=== PATIENT | male | born 1985 | race Caucasian/White ===

== ENCOUNTER 2021-09-08 13:36 | Emergency (ER) | payer MEDICAID ==
[~2021-09-08] VITALS: Ht 177.8 cm; Wt 82.0 kg
[2021-09-08] MEDS ORDERED: ONDANSETRON HCL 4MG/2ML INJ IV STA (17:08)
[2021-09-08] MEDS ORDERED: SODIUM CHLORIDE 0.9% 1,000 ML IV ONE (17:15)
[2021-09-08] MEDS ORDERED: MORPHINE SULFATE 4 MG/ML CPJ (NOT FOR IM USE) IV ONE (22:45)
[2021-09-08] MEDS ORDERED: FAMOTIDINE 20MG/2ML VIAL IV ONE (22:45)
[2021-09-08 22:46] LABS: BASOPHILS % 0.4 % (0.0-2.0); HEMATOCRIT. 52.3 % (42.0-52.0); LYMPHOCYTES % 14.7 % (20.0-50.0); MEAN CORPUSCULAR HEMOGLOBIN 28.5 pg (28.0-32.0); MEAN CORPUSCULAR VOLUME 82.6 fL (80.0-94.0); MEAN PLATELET VOLUME 8.2 fl (7.4-10.4); MONOCYTES % 8.4 % (2.0-8.0); NEUTROPHILS % 76.5 % (40.0-76.0); PLATELET 293 x1000/uL (130-400); RED BLOOD CELL COUNT 6.33 mill/uL (4.7-6.1); RED CELL DISTRIBUTION WIDTH 13.6 % (11.6-14.6)
[2021-09-08 22:48] LABS: CHLORIDE 101 mEq/L (98-107)
[2021-09-08 22:52] LABS: ETHANOL BLOOD < 10 mg/dL
[2021-09-08] MEDS ORDERED: ONDANSETRON HCL 4MG/2ML INJ IV NR (23:45)
[2021-09-09] MEDS ORDERED: ONDA4TAB5 MT (00:56)
[2021-09-09] MEDS ORDERED: PROT20 MT (00:57)
[2021-09-09 02:00] VITALS: BP 133/85
== END 2021-09-09 02:18 | disposition home or self-care (01) ==
LOC: ER 13:50
DX: R10.13 Epigastric pain (principal); M25.512 Pain in left shoulder
CPT/HCPCS: 36415; 73030; 76705; 80053; 80320; 83690; 85025; 93005; 96361; 96374; 96375; 99285; J2270; J3490; J7030; G0480